=== PATIENT | male | born 1980 | race Two or more races ===

== ENCOUNTER 2021-06-25 09:32 | Emergency (ER) | payer SELFPAY ==
[~2021-06-25] VITALS: Ht 170.2 cm; Wt 86.3 kg
--- NOTE | 2021-06-25 10:13 | PHYS DOC ---
General Adult EDM: Chief Complaint: BACK PAIN - NO INJURY HPI: HPI: Patient is a 40 year old male who presents with bilateral flank pain, radiating from the right to the left, now with more persistent left flank pain, which is intermittent for the past several days but has been constant today. Describes the pain is sharp, the pain occasionally radiates to his mid abdomen, but he denies any acute abdominal pain at present. He does report occasional urinary urgency. He denies dysuria or gross hematuria. He denies any urinary symptoms today. He has been taking someone else's prescription for amoxicillin for the past few days. He denies fevers or chills. He denies nausea or vomiting. He denies constipation or diarrhea. He denies skin rash. No previous similar symptoms. He has taken [id number] ibuprofen occasionally for pain, no medications taken today. No previous abdominal surgeries reported. No previous known history of urinary tract problems, renal colic or ureterolithiasis. Review of Systems: Review of Systems: Constitutional: Denies fever or chills. [] HENT: Denies nasal congestion or sore throat. [] Respiratory: Denies cough or shortness of breath. [] Cardiovascular: Denies chest pain or edema. [] GI: Left flank pain, suprapubic abdominal pain, denies nausea, vomiting, diar vianey, constipation : Urinary urgency and frequency, denies gross hematuria, denies dysuria. Denies scrotal swelling or pain. Denies penile discharge. Musculoskeletal: Left flank pain. Denies midline back pain, denies joint pain or swelling. Integument: Denies rash. [] Neurologic: Denies headache, focal weakness or sensory changes. [] Psychiatric: Denies depression or anxiety. [] Heart Score: C/O Chest Pain: No Risk Factors: Risk Factors: DM, Current or recent (<one month) smoker, HTN, HLP, family history of CAD, obesity. Risk Scores: Score 0 - 3: 2.5% MACE over next 6 weeks - Discharge Home Score 4 - 6: 20.3% MACE over next 6 weeks - Admit for Clinical Observation Score 7 - 10: 72.7% MACE over next 6 weeks - Early Invasive Strategies Physical Exam: PE: Constitutional: Well developed, well nourished, no acute distress, non-toxic appearance. [] HENT: Normocephalic, atraumatic Eyes: Conjunctiva normal, no scleral icterus. Neck: Trachea midline Cardiovascular:Heart rate regular rhythm, +2 radial and +2 posterior tibial pulses bilaterally Lungs & Thorax: Bilateral breath sounds clear to auscultation [] Abdomen: Abdomen is soft, nondistended, minimal suprapubic tenderness to palpation. No guarding, no rebound tenderness. No palpable pulsatile mass. No CVA tenderness. No flank abdominal ecchymoses. No palpable masses organomegaly. Normal bowel sounds are noted. Skin: Warm, dry, no erythema, no rash. No jaundice. Back: No tenderness, no CVA tenderness. No deformity, full range of motion. Extremities: No tenderness, no cyanosis, no clubbing, ROM intact, no edema. [] Neurologic: Alert and oriented X 3, normal motor function, normal sensory function, no focal deficits noted. [] Psychologic: Affect normal, judgement normal, mood normal. [] EKG: EKG: [] Radiology/Procedures: Radiology/Procedures: IMAGING REPORT Signed PATIENT: GREGORY ROMEACCOUNT: [id number] : 1980 LOCATION: ER AGE: 40 SEX: M EXAM STATUS: REG ER ORD. PHYSICIAN: ASHANTI IRAHETA DO REASON: flank pain, hematuria PROCEDURE: CT ABDOMEN PELVIS WO CONTRAST Exam: CT abdomen/pelvis without intravenous contrast Indication: Flank pain, Comparison: None Technique: Helical CT imaging performed of the abdomen and pelvis without the use of intravenous contrast. Sagittal and coronal reformats were obtained. One or more of the following individualized dose reduction techniques were utilized for this examination: 1. Automated exposure control 2. Adjustment of the mA and/or kV according to patient size 3. Use of iterative reconstruction technique. Findings: Inherently limited evaluation without intravenous contrast. Lower chest: Mild dependent atelectasis in the lower lobes. Heart is normal in size. Liver: The liver is normal in size and diffusely low in attenuation. Gallbladder/Biliary Tree: Normal. Pancreas: Normal. Spleen: Normal. Adrenal Glands: Normal. Kidneys/Ureters/Bladder: Kidneys are normal in size. No nephrolithiasis or hy dronephrosis. Ureters and bladder are normal. Reproductive Organs: Prostate gland is normal. Stomach, small bowel, and colon: The stomach, small bowel, appendix, and colon are normal. Vasculature: Abdominal aorta is normal caliber. No vascular calcifications. Lymph Nodes: No lymphadenopathy. Peritoneum and retroperitoneum: No free fluid or free air. Bones: No acute osseous abnormality. IMPRESSION: 1. No urolithiasis or hydronephrosis. 2. Hepatic steatosis. Electronically signed by: Lena Garcia MD (06/25/2021 12:23 PM) [id number] DICTATED and SIGNED BY: LENA GARCIA MD DATE: 06/25/21 [id number] 0 Course & Med Decision Making: Course & Med Decision Making Pertinent Labs and Imaging studies reviewed. (See chart for details) The patient is given IV fluids and IV Toradol for pain. CT is unremarkable for any acute pathology, no hydronephrosis or ureteral stone noted. UA showed positive nitrates, but demonstrates no evidence of urinary tract infection. The patient has been taking multiple medications given to him by the people, it is possible he is taken Pyridium. He denies dysuria, no active urinary symptoms at present. He is afebrile, has a benign abdominal exam. No bacteria noted on UA micro. Urine culture is pending. I have discussed all of the findings, differential diagnosis and plan of care with him. No current indication for further invasive exams, imaging or admission based on current clinical presentation. I discussed home care instructions. He will be prescribed medications to help with pain. I recommend that he stop taking amoxicillin that is not prescribed to him. I question whether this is actually amoxicillin that he is taking since that someone else is that he is not sure was even obtained from a physician. He is given outpatient resources for primary care doctor. Return precautions were given. Precious Disclaimer: Precious Disclaimer: This electronic medical record was generated, in whole or in part, using a voice recognition dictation system. Departure Departure Impression: Primary Impression: Flank pain Disposition: HOME / SELF CARE / HOMELESS Condition: STABLE Referrals: NO PCP (PCP) Patient Instructions: Flank Pain Additional Instructions: Use the medication prescribed as directed. Stay hydrated, drink plenty of fluids. You do not appear to have any obvious infection at this time, so please do not take the antibiotics that you have been taking at home. Return to the ER for fever 100.4 or higher, if you develop any severe burning or pain with urination, if you develop uncontrolled vomiting, dehydration or any other concerns. If for any reason your urine culture does grow bacteria, you should be notified within about 48 hours. You will be called in antibiotics may be called in at that time, only if necessary. Please follow-up with your primary care physician. Scripts Cyclobenzaprine Hcl (CYCLOBENZAPRINE HCL) 10 Mg Tablet 1 TAB PO BID for muscle spasm, #14 TAB Prov: ASHANTI IRAHETA DO 06/25/21 Ibuprofen (IBUPROFEN) 800 Mg Tablet 800 MG PO PRN TID PRN for PAIN, #20 TAB take with food or milk to avoid upsetting stomach Prov: ASHANTI IRAHETA DO 06/25/21 ASHANTI IRAHETA DO Jun 25, 2021 10:13
[2021-06-25 10:30] VITALS: BP 113/70
[2021-06-25] MEDS: IV NORMAL SALINE 1000ML BAG 1,000 ML IV ONE (10:50)
[2021-06-25] MEDS: ONDANSETRON PF 4 MG/2 ML VIAL. IVP ONE (10:56)
[2021-06-25] MEDS: KETOROLAC 30 MG/ML VIAL. IVP ONE (10:59)
[2021-06-25 11:13] LABS: CALCIUM 8.2 mg/dL (8.5-10.1); CREATININE 0.8 mg/dL (0.7-1.3); GFR 107.6; POTASSIUM 3.7 mmol/L (3.5-5.1)
[2021-06-25 11:14] LABS: BILIRUBIN,URINE NEGATIVE (NEG); CLARITY,URINE CLEAR; COLOR,URINE AMBER; NITRITE,URINE POSITIVE (NEG); PROTEIN,URINE NEGATIVE (NEG-TRACE); UROBILINOGEN,URINE 0.2 mg/dL (0.2 mg/dL)
[2021-06-25 11:15] LABS: BASO % 0 % (0-3); EOS # 0.3 x10^3/uL (0.0-0.7); EOS % 3 % (0-3); HEMATOCRIT 45.8 % (39.0-53.0); HEMOGLOBIN 15.7 g/dL (13.0-17.5); LYMPH # 2.2 x10^3/uL (1.0-4.8); LYMPH % 25 % (24-48); MEAN CORPUSCULAR HEMOGLOBIN 30 pg (25-35); MEAN CORPUSCULAR HGB CONC 34 g/dL (31-37); MEAN CORPUSCULAR VOLUME 89 fL (79-100); MONO # 0.6 x10^3/uL (0.0-1.1); MONO % 7 % (0-9); NEUT # 5.6 x10^3/uL (1.8-7.7); NEUT % 65 % (31-73); PLATELET COUNT 205 x10^3/uL (140-400); RED BLOOD COUNT 5.18 x10^6/uL (4.30-5.70); RED CELL DISTRIBUTION WIDTH 13.4 % (11.5-14.5); WHITE BLOOD COUNT 8.7 x10^3/uL (4.0-11.0)
[2021-06-25 11:16] LABS: BACTERIA,URINE 0 /HPF (0-FEW); RBC,URINE OCC /HPF (0-2); WBC,URINE OCC /HPF (0-4)
[2021-06-25 11:21] LABS: ALBUMIN 3.7 g/dL (3.4-5.0); ALBUMIN/GLOBULIN RATIO 0.9 (1.0-1.7); TOTAL BILIRUBIN 0.4 mg/dL (0.2-1.0)
--- NOTE | 2021-06-25 12:25 | RAD ---
Exam: CT abdomen/pelvis without intravenous contrast Indication: Flank pain, Comparison: None Technique: Helical CT imaging performed of the abdomen and pelvis without the use of intravenous cont rast. Sagittal and coronal reformats were obtained. One or more of the following individualized dose reduction techniques were utilized for this examinat ion: 1. Automated exposure control 2. Adjustment of the mA and/or kV according to patient size 3. Use of iterative reconstruction technique. Findings: Inherently limited evaluation without intravenous contrast. Lower chest: Mild dependent atelectasis in the lower lobes. Heart is normal in size. Liver: The liver is normal in size and diffusely low in attenuation. Gallbladder/Biliary Tree: Normal. Pancreas: Normal. Spleen: Normal. Adrenal Glands: Normal. Kidneys/Ureters/Bladder: Kidneys are normal in size. No nephrolithiasis or hydronephrosis. Ureters an d bladder are normal. Reproductive Organs: Prostate gland is normal. Stomach, small bowel, and colon: The stomach, small bowel, appendix, and colon are normal. Vasculature: Abdominal aorta is normal caliber. No vascular calcifications. Lymph Nodes: No lymphadenopathy. Peritoneum and retroperitoneum: No free fluid or free air. Bones: No acute osseous abnormality. IMPRESSION: 1. No urolithiasis or hydronephrosis. 2. Hepatic steatosis. Electronically signed by: Lena Garcia MD (06/25/2021 12:23 PM) [id number]
[2021-06-25] MEDS ORDERED: IBUP-1060 PO (13:59)
[2021-06-25] MEDS ORDERED: CYCL10TA19 PO (13:59)
== END 2021-06-25 14:48 | disposition home or self-care (01) ==
LOC: ER 09:32
DX: R10.32 Left lower quadrant pain (principal); K76.0 Fatty (change of) liver, not elsewhere classified
CPT/HCPCS: 36415; 74176; 80053; 81001; 83690; 85025; 87086; 96361; 96374; 96375; 99284; J1885; J2405; J7030